=== PATIENT | female | born 1965 ===

== ENCOUNTER → 2017-09-21 | Emergency (ER) | payer SELFPAY ==
--- NOTE | 2017-09-21 17:47 | PDOC ---
Attending Attestation - Resident Resident Name: LizJay - ED Attending Attestation I have performed the following: I have examined & evaluated the patient, The case was reviewed & discussed with the resident, I agree w/resident's findings & plan, Exceptions are as noted - Medical Decision Making 09/21/17 17:47 I, Dr. Kristan Noe, DO, attest that this document has been prepared under my direction and personally reviewed by me in its entirety. I further attest, that it accurately reflects all work, treatment, procedures and medical decision -making performed by me.
[2017-09-21 17:51] VITALS: BP 0/0; BMI 24.7
== END | disposition left against medical advice (07) ==
LOC: JER 17:35
DX: Z53.8 Procedure and treatment not carried out for other reasons (principal)
CPT/HCPCS: 99281-25